=== PATIENT | female | born 1985 | race Caucasian/White ===

== ENCOUNTER 2022-12-08 18:58 | Emergency (ER) | payer MEDICAID ==
[~2022-12-08] VITALS: Ht 152.4 cm; Wt 59.0 kg
[2022-12-08 19:12] VITALS: O2SAT 98
[2022-12-08 19:52] LABS: CLARITY URINE CLOUDY (CLEAR); COLOR URINE YELLOW (YELLOW); GLUCOSE URINE NEGATIVE (NEGATIVE); KETONES URINE NEGATIVE (NEGATIVE); LEUKOCYTE ESTERASE URINE NEGATIVE (NEGATIVE); NITRITE URINE NEGATIVE (NEGATIVE); OCCULT BLOOD URINE NEGATIVE (NEGATIVE); PH URINE 5.5 (4.5-8.0); PROTEIN URINE NEGATIVE (NEGATIVE); UROBILINOGEN URINE 0.2 E.U./dL (0.2-1.0)
[2022-12-08 19:56] LABS: WBC URINE 0-2 /hpf (0-2); YEAST URINE NONE SEEN
[2022-12-08 20:15] LABS: BASOPHILS % 0.5 % (0.0-2.0); EOSINOPHILS % 0.9 % (0.0-5.0); HEMATOCRIT. 37.4 % (36.0-48.0); HEMOGLOBIN. 12.8 g/dL (12.0-16.0); LYMPHOCYTES % 24.9 % (20.0-50.0); MEAN CORPUSCULAR HEMOGLOBIN 30.9 pg (28.0-32.0); MEAN CORPUSCULAR HGB CONC 34.1 g/dL (31.0-37.0); MEAN CORPUSCULAR VOLUME 90.6 fL (81.0-99.0); MEAN PLATELET VOLUME 9.1 fl (7.4-10.4); MONOCYTES % 8.7 % (2.0-8.0); PLATELET 255 x1000/uL (130-400); RED BLOOD CELL COUNT 4.13 mill/uL (4.2-5.4); RED CELL DISTRIBUTION WIDTH 13.1 % (11.6-14.6); WHITE BLOOD COUNT 7.7 x1000/uL (4.5-11.0)
[2022-12-08 20:26] LABS: CHLORIDE 107 mEq/L (98-107); INDEX HEMOLYSI 1 (1-3); INDEX ICTERIC 1 (1-4); INDEX LIPEMIC 1 (1-3); POTASSIUM 3.8 mEq/L (3.5-5.1); SODIUM 140 mEq/L (136-145)
[2022-12-08 20:28] LABS: BACTERIA URINE 2+
[2022-12-08 20:29] LABS: RBC URINE 0-2 /hpf (0-2); SQUAMOUS EPITHELIAL CELL URINE 2+ /lpf (RARE/1+)
[2022-12-08 20:30] LABS: HCG SCREEN NEGATIVE; PARTIAL THROMBOPLASTIN TIME 27.2 sec (23.4-31.0); PROTHROMBIN TIME 10.7 sec (9.6-11.0)
[2022-12-08 20:33] LABS: ALANINE AMINOTRANSFERASE 24 IU/L (13-61); ALBUMIN 3.7 g/dL (3.4-5.0); ASPARTATE AMINOTRANSFERASE 17 IU/L (15-37); BILIRUBIN TOTAL 0.5 mg/dL (0.1-1.0); CALCIUM 8.4 mg/dL (8.5-10.1); CARBON DIOXIDE 30 mEq/L (21-32); CREATININE 0.6 mg/dL (0.6-1.3); GLUCOSE 79 mg/dL (70-105); PROTEIN TOTAL 7.1 g/dL (6.0-8.3); UREA NITROGEN BLOOD 15 mg/dL (7-21)
[2022-12-08] MEDS ORDERED: MORPHINE SULFATE 4 MG/ML CPJ (NOT FOR IM USE) IV ONE (21:30)
[2022-12-08 22:00] VITALS: BP 108/63; PULSE 55; RESP 14; TEMP 98.8
[2022-12-08] MEDS ORDERED: IOHEXOL-300 100 ML BOTTLE ONE (23:31)
== END 2022-12-08 22:50 | disposition home or self-care (01) ==
LOC: ER 18:58
DX: S30.1XXA Contusion of abdominal wall, initial encounter (principal); Z98.890 Other specified postprocedural states; V89.2XXA Person injured in unspecified motor-vehicle accident, traffic, initial encounter; Y93.89 Activity, other specified; Y92.89 Other specified places as the place of occurrence of the external cause; Y99.8 Other external cause status
CPT/HCPCS: 80053; 81003; 81025; 84703; 83690; 85025; 85610; 85730; 86850; 86900; 86901; 36415; 71045; 71260; 74177; 96374; 99285; Q9967; J2270; Z7610 ×2

== ENCOUNTER 2023-12-01 10:00 | Emergency (ER) | payer MEDICAID ==
[~2023-12-01] VITALS: Ht 152.4 cm; Wt 58.9 kg
[2023-12-01 10:31] VITALS: O2SAT 100
[2023-12-01] MEDS ORDERED: NAPR-679 MT (11:45)
[2023-12-01] MEDS ORDERED: CYCL5TAB MT (11:45)
[2023-12-01] MEDS ORDERED: ACET-2708 MT (11:45)
[2023-12-01] MEDS ORDERED: ACETAMINOPHEN 325MG TABLET PO ONE (11:45)
[2023-12-01] MEDS ORDERED: KETOROLAC 30MG/ML VIAL IM ONE (11:45)
[2023-12-01 13:53] VITALS: BP 130/60; PULSE 74; RESP 16; TEMP 98.2
[2023-12-01] MEDS: KETOROLAC 30MG/ML VIAL IM NR (13:53)
[2023-12-01] MEDS: ACETAMINOPHEN 325MG TABLET PO NR (13:53)
== END 2023-12-01 13:55 | disposition home or self-care (01) ==
LOC: ER 10:08
DX: M62.838 Other muscle spasm (principal); Z98.890 Other specified postprocedural states; Z79.899 Other long term (current) drug therapy
CPT/HCPCS: 81025; 96372; 99283; J1885; Z7610